=== PATIENT | male | born 1970 | race Caucasian/White ===

== ENCOUNTER 2017-12-24 09:30 | Inpatient (IN) ==
[2017-12-24] MEDS ORDERED: Ipratropium/Albuterol Neb 3 ML IH ONE (09:33)
[2017-12-24] MEDS ORDERED: methylPREDNISolone 125 MG/2 ML VIAL IVP ONE (09:36)
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
--- NOTE | 2017-12-24 09:52 | Emergency Department Note ---
Disposition Clinical Impression: HCAP (healthcare-associated pneumonia) Disposition: Admitted As Inpatient Condition: Good Referrals: NONE,PCP [Primary Care Provider] - Forms: ED Satisfaction Letter General Adult HPI - General Chief complaint: ED Shortness of Breath/Dyspnea Stated complaint: JOSE Time Seen by Provider: 12/24/17 09:32 Source: EMS Limitations: physical limitation Nursing Notes Reviewed: Yes Vital Signs Reviewed: Yes - History of Present Illness Pain Scale: 0 Past Medical History - Past Medical History Medical history: Reports: diabetes, hypertension, other Psychiatric history: Reports: no psych history - Social History Smoking Status: Current every day smoker Smokeless Tobacco Status: No Alcohol use: Reports: none Drug use: Reports: none Physical Exam - General Limitations: physical limitation General appearance: alert, in no apparent distress Course Vital Signs Temperature 99.0 F 12/24/17 09:33 Pulse Rate 96 12/24/17 09:33 Respiratory Rate 22 12/24/17 09:33 Blood Pressure 164/84 12/24/17 09:33 O2 Sat by Pulse Oximetry 93 12/24/17 09:33 Temperature 99.0 F 12/24/17 09:33 Pulse Rate 97 12/24/17 10:40 Respiratory Rate 18 12/24/17 09:42 Blood Pressure 127/83 12/24/17 10:40 O2 Sat by Pulse Oximetry 92 12/24/17 10:40 Oxygen Delivery Oxygen Delivery Nasal Cannula Medical Decision Making - MDM Narrative Medical decision making narrative: This documentation is done with the assistance of Dragon dictation. Despite efforts made to ensure accuracy, there may be inaccuracies in manga artist or spelling and typographical errors. I examined this patient and my medical decision-making was reviewed with the Resident Physician. I agree with the documented findings, disposition and treatment plan as described except to the extent set forth below. Patient was seen on arrival with EMS and Dr. Poole, I agree with her evaluation and management plan, supervised the care of the patient's stay. Patient presents today with what he thinks is increasing shortness of breath and possible pneumonia. History of COPD. Oxygen Now. Still Having Some Wheezing. No Chest Pain. He Does Have Paraplegia and Has a Zuluaga in Place. No Difficulties with That; No Fevers. I Gave Him a DuoNeb Lab Work and Recheck. He May Need Admission. He Is in Agreement with This Plan. 0940 hrs.: Patient had an EKG performed, shows a sinus rhythm does have 1 PVC, rate is 92, QRS is 116, QTC is 423, does have Q waves in inferior leads. Compared this with an EKG done in 2014 which shows no changes except for the PVC and rate. Chest X-Ray 12/24/17 09:33 IMPRESSION: 1. Cardiomegaly with pulmonary vascular congestion. 2. Consolidation noted in the left lung base which may be related to atelectasis and/or pleural effusion. Superimposed pneumonia cannot entirely be excluded. D/ / Aramis Patiño MD / Aramis Patiño MD Interpreting Provider: Aramis Patiño MD Patient's chest x-ray was not really able to be compared to his previous one. He says he was admitted here but we will seen in our records to the question is whether this is a new pneumonia or recovering. We will start him on antibiotics. Treat his acute exacerbation of COPD and then he is in agreement with this plan. We will speak with the hospitalist. - Lab Data Result diagrams: 12/24/17 10:03 12/24/17 10:03 Lab Results 12/24/17 12/24/17 12/24/17 Range/Units 10:03 10:03 10:03 WBC 8.5 (4.3-11.1) K/mcL RBC 5.82 H (4.19-5.50) M/mcL Hgb 16.1 (12.9-16.9) g/dL Hct 50.5 H (37.5-50.1) % MCV 86.8 (83.0-100.0) fL MCH 27.7 L (28.0-33.3) pg MCHC 31.9 (31.6-35.5) g/dL RDW 14.6 H (11.5-14.5) % Plt Count 175 (140-400) K/mcL MPV 10.1 (9.4-12.4) fL Immature Gran % 0.6 (0-4) % Seg Neutrophils % 66.5 % Lymphocytes % 18.0 % Monocytes % 11.8 % Eosinophils % 2.6 % Basophils % 0.5 % Neutrophils # 5.6 (1.6-8.9) K/mcL Lymphocytes # 1.5 (0.6-4.6) K/mcL Monocytes # 1.0 (0.0-1.3) K/mcL Eosinophils # 0.2 (0.0-0.6) K/mcL Basophils # 0.0 (0.0-0.2) K/mcL Sodium 133 L (136-145) mEq/L Potassium 4.2 (3.5-5.1) mEq/L Chloride 96 L (98-107) mEq/L Carbon Dioxide 29 (23-29) mEq/L BUN 12 (6-20) mg/dL Creatinine 0.56 L (0.70-1.30) mg/dL Est GFR ( Amer) > 60 (> 60) Est GFR (Non-Af Amer) > 60 (> 60) BUN/Creatinine Ratio 21 (6-26) Glucose 186 H (70-105) mg/dL Calculated Osmolality 281 (280-300) Lactic Acid 1.9 (0.5-2.2) mmol/L Calcium 9.1 (8.6-10.3) mg/dL Phosphorus (2.7-4.5) mg/dL Magnesium 1.7 (1.6-2.6) mg/dL Troponin I < 0.03 (< 0.04) ng/mL 12/24/17 Range/Units 10:03 WBC (4.3-11.1) K/mcL RBC (4.19-5.50) M/mcL Hgb (12.9-16.9) g/dL Hct (37.5-50.1) % MCV (83.0-100.0) fL MCH (28.0-33.3) pg MCHC (31.6-35.5) g/dL RDW (11.5-14.5) % Plt Count (140-400) K/mcL MPV (9.4-12.4) fL Immature Gran % (0-4) % Seg Neutrophils % % Lymphocytes % % Monocytes % % Eosinophils % % Basophils % % Neutrophils # (1.6-8.9) K/mcL Lymphocytes # (0.6-4.6) K/mcL Monocytes # (0.0-1.3) K/mcL Eosinophils # (0.0-0.6) K/mcL Basophils # (0.0-0.2) K/mcL Sodium (136-145) mEq/L Potassium (3.5-5.1) mEq/L Chloride (98-107) mEq/L Carbon Dioxide (23-29) mEq/L BUN (6-20) mg/dL Creatinine (0.70-1.30) mg/dL Est GFR ( Amer) (> 60) Est GFR (Non-Af Amer) (> 60) BUN/Creatinine Ratio (6-26) Glucose (70-105) mg/dL Calculated Osmolality (280-300) Lactic Acid (0.5-2.2) mmol/L Calcium (8.6-10.3) mg/dL Phosphorus 2.9 (2.7-4.5) mg/dL Magnesium (1.6-2.6) mg/dL Troponin I (< 0.04) ng/mL
[2017-12-24 10:30] LABS: Basophils % 0.5 %; Eosinophils # 0.2 K/mcL (0.0-0.6); Eosinophils % 2.6 %; Hematocrit 50.5 % (37.5-50.1); Hemoglobin 16.1 g/dL (12.9-16.9); Immature Granulocytes % 0.6 % (0-4); Lymphocytes # 1.5 K/mcL (0.6-4.6); Mean Corpuscular HGB Conc 31.9 g/dL (31.6-35.5); Mean Corpuscular Hemoglobin 27.7 pg (28.0-33.3); Mean Corpuscular Volume 86.8 fL (83.0-100.0); Mean Platelet Volume 10.1 fL (9.4-12.4); Monocytes % 11.8 %; Neutrophils # 5.6 K/mcL (1.6-8.9); Platelet Count 175 K/mcL (140-400); Red Blood Count 5.82 M/mcL (4.19-5.50); Red Cell Distribution Width 14.6 % (11.5-14.5); Segmented Neutrophils % 66.5 %
[2017-12-24 10:48] LABS: BUN/Creatinine Ratio 21 (6-26); Blood Urea Nitrogen 12 mg/dL (6-20); Calcium 9.1 mg/dL (8.6-10.3); Carbon Dioxide 29 mEq/L (23-29); Chloride 96 mEq/L (98-107); Glucose 186 mg/dL (70-105); Magnesium 1.7 mg/dL (1.6-2.6); Osmolality,Calculated 281 (280-300); Potassium 4.2 mEq/L (3.5-5.1); Sodium 133 mEq/L (136-145); eGFR For African Americans > 60 (> 60); eGFR For Non-African Americans > 60 (> 60)
[2017-12-24] MEDS ORDERED: Piperacillin/Tazobactam 3.375 GM in 0.9 % Sodium Chloride Mini Bag 100 ML IVPB ONE (10:49)
[2017-12-24 10:58] LABS: Troponin I < 0.03 ng/mL (< 0.04)
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
[2017-12-24] MEDS ORDERED: Naloxone 0.4 MG/ML INJ IVP PRN (14:01)
[2017-12-24] MEDS ORDERED: ZINC OXIDE TP PRN (14:10)
[2017-12-24] MEDS ORDERED: MENTHOL TP PRN (14:10)
--- NOTE | 2017-12-24 14:50 | Electrocardiograph Report ---
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
[2017-12-24] MEDS: Ipratropium/Albuterol Neb 3 ML IH SCH ×3 (16:11→23:59)
[2017-12-24] MEDS: Baclofen 10 MG TABLET PO SCH ×2 (16:18→21:27)
[2017-12-24] MEDS: methylPREDNISolone 125 MG/2 ML VIAL IVP SCH (16:18)
[2017-12-24] MEDS: Pregabalin 50 MG CAPSULE PO SCH ×2 (16:18→21:27)
[2017-12-24] MEDS: Insulin Regular, Human 100 UNIT/ML SQ SCH ×2 (16:19→21:28)
[2017-12-24] MEDS: Metoprolol 100 MG TABLET PO SCH (19:40)
[2017-12-24] MEDS: *HR* Heparin 5,000 UNIT/ML VIAL SQ SCH (21:28)
[2017-12-25] MEDS: methylPREDNISolone 125 MG/2 ML VIAL IVP SCH ×3 (00:10→15:12)
[2017-12-25] MEDS: Ipratropium/Albuterol Neb 3 ML IH SCH ×6 (03:59→23:54)
[2017-12-25] MEDS: *HR* Heparin 5,000 UNIT/ML VIAL SQ SCH ×3 (05:49→21:16)
[2017-12-25 07:55] LABS: Basophils % 0.3 %; Hemoglobin 16.2 g/dL (12.9-16.9); Immature Granulocytes % 0.8 % (0-4); Lymphocytes # 1.1 K/mcL (0.6-4.6); Mean Corpuscular HGB Conc 32.4 g/dL (31.6-35.5); Mean Corpuscular Hemoglobin 27.5 pg (28.0-33.3); Mean Corpuscular Volume 84.7 fL (83.0-100.0); Mean Platelet Volume 10.6 fL (9.4-12.4); Monocytes # 0.5 K/mcL (0.0-1.3); Monocytes % 6.5 %; Neutrophils # 5.6 K/mcL (1.6-8.9); Platelet Count 208 K/mcL (140-400); Red Cell Distribution Width 14.7 % (11.5-14.5); Segmented Neutrophils % 77.4 %
[2017-12-25] MEDS: Lisinopril 20 MG TABLET PO SCH (08:05)
[2017-12-25] MEDS: Metoprolol 100 MG TABLET PO SCH ×2 (08:05→21:15)
[2017-12-25] MEDS: Aspirin Enteric Coated 81 MG Tablet PO SCH (08:06)
[2017-12-25] MEDS: Baclofen 10 MG TABLET PO SCH ×3 (08:06→21:15)
[2017-12-25] MEDS: Pregabalin 50 MG CAPSULE PO SCH ×3 (08:06→21:16)
[2017-12-25 08:30] LABS: BUN/Creatinine Ratio 30 (6-26); Blood Urea Nitrogen 16 mg/dL (6-20); Calcium 9.5 mg/dL (8.6-10.3); Carbon Dioxide 24 mEq/L (23-29); Chloride 103 mEq/L (98-107); Glucose 306 mg/dL (70-105); Osmolality,Calculated 297 (280-300); Potassium 5.1 mEq/L (3.5-5.1); Sodium 137 mEq/L (136-145); eGFR For African Americans > 60 (> 60); eGFR For Non-African Americans > 60 (> 60)
[2017-12-25] MEDS ORDERED: (Liraglutide [Victoza 2-Pak] 0.6 MG) SQ SCH (09:00)
[2017-12-25] MEDS ORDERED: Insulin Regular, Human 100 UNIT/ML SQ SCH ×3 (10:00→15:00)
[2017-12-25] MEDS: Insulin Regular, Human 100 UNIT/ML SQ SCH ×6 (12:21→22:14)
--- NOTE | 2017-12-25 12:30 | Internal Med Progress Note ---
Date of Encounter: 12/25/17 Time of Encounter: 12:28 - Assessment and plan (1) HCAP (healthcare-associated pneumonia) Current Visit: Yes Status: Acute Assessment and plan: Patient was found to be hypoxic in the emergency room with a productive cough and positive for shortness of breath. Continue vancomycin and Zosyn for healthcare associated pneumonia. Continue duo nebs and Solu-Medrol CXR report Cardiomegaly with pulmonary vascular congestion. and consolidation noted in the left lung base which may be related to atelectasis and/or pleural effusion. Superimposed pneumonia cannot entirely be excluded. (2) Diabetes Current Visit: Yes Status: Chronic Assessment and plan: Hold oral glycemic medications and continue home insulin as well as sliding scale insulin coverage Qualifiers: Diabetes mellitus type: type 2 Qualified Code(s): E11.9 - Type 2 diabetes mellitus without complications; Z79.4 - halfway (current) use of insulin; Z79.4 - halfway (current) use of insulin; Z79.4 - halfway (current) use of insulin; Z79.4 - termite treater helper (current) use of insulin (3) HTN (hypertension) Current Visit: Yes Status: Chronic Assessment and plan: Blood pressure is borderline, continue home medications Add hydralazine for when necessary blood pressure control Qualifiers: Hypertension type: essential hypertension Qualified Code(s): I10 - Essential (primary) hypertension (4) Obesity Current Visit: Yes Status: Chronic Assessment and plan: Would benefit from dietary changes but not receptive as he states he has few pleasures in life Qualifiers: Obesity classification: adult class 3 (BMI >= 40) Body mass index: BMI 50.0 -59.9 Qualified Code(s): E66.9 - Obesity, unspecified; Z68.43 - Body mass index (BMI) 50-59.9 , adult; Z68.43 - Body mass index (BMI) 50-59.9 , adult; Z68.43 - Body mass index (BMI) 50-59.9 , adult; Z68.43 - Body mass index (BMI) 50-59.9 , adult (5) Smoker Current Visit: Yes Status: Chronic Assessment and plan: Patient not interested in cessation, he states it is one of the few pleasures he has left. (6) Acute respiratory failure with hypoxia Current Visit: Yes Status: Acute Assessment and plan: Chest x-ray report revealed enlarged cardiac silhouette, pulmonary vascular congestion. And area of consolidation in the left lung base that could be related to atelectasis and/or pleural effusion although superimposed pneumonia cannot be excluded. Administer 1 dose of 40 mg IV Lasix Check a BNP O2 to maintain sats greater than 90% (7) HLD (hyperlipidemia) Current Visit: Yes Status: Chronic Assessment and plan: Continue Zocor Qualifiers: Hyperlipidemia type: unspecified Qualified Code(s): E78.5 - Hyperlipidemia , unspecified (8) DVT prophylaxis Current Visit: Yes Status: Acute Assessment and plan: Continue subcutaneous heparin - Time Spent With Patient Total time spent is greater than 50% in coordination of care (as documented) at patient's floor/unit and/or counseling patient: - Subjective Interval history: Patient is sitting up in bed in no acute distress on 3 L nasal cannula. He does not have home oxygen. He states he smokes one pack of cigarettes per day and is not interesting in cessation. He also states that he is a paraplegic and his feet are always cold. He also states that transportation to and from is a problem wish to start working on it early. He denies any fever, chills, chest pain. He does report some increased yellow sputum. He is tolerating a diet. - Constitutional Vitals: Temp Pulse Resp BP Pulse Ox 98.8 F 92 17 154/92 91 12/25/17 11:15 12/25/17 11:15 12/25/17 11:41 12/25/17 11:15 12/25/17 11:41 General appearance: Present: cooperative, A&O X 3, morbidly obese, answers questions appropriately - Head Head exam: Present: atraumatic, normocephalic - Eye Eye exam: Present: PERRL, conjuntiva pink, sclera anicteric Pupils: Present: PERRL - Neck Neck exam general surgery: Present: supple, trachea midline. Absent: lymphadenopathy - Respiratory Respiratory exam: Present: decreased breath sounds. Absent: accessory muscle use, rales, respiratory distress, rhonchi, wheezes - Cardiovascular Cardiovascular exam: Present: RRR, +S1, +S2. Absent: diastolic murmur, gallop, rubs, systolic murmur - GI/Abdominal GI/Abdominal exam: Present: firm, normal bowel sounds, no peritoneal signs. Absent: distended, tenderness - Extremities Exam Extremities exam: Present: pedal edema, radial pulses palpable and symmetrical. Absent: calf tenderness, cyanotic, mottling Additional comments: Lower extremities are cool but patient states that is a normal finding for him - Neurological Exam Neurological exam: Present: CN II-XII intact, oriented X3, no focal deficits. Absent: pronater drift, facial droop, speech deficit - Skin Skin exam: Present: dry, intact, normal color, warm Internal Medicine: Result - Labs CBC & Chem 7: 12/25/17 06:59 12/25/17 06:59 Labs: Short CBC 12/25/17 Range/Units 06:59 WBC 7.2 (4.3-11.1) K/mcL Hgb 16.2 (12.9-16.9) g/dL Hct 50.0 (37.5-50.1) % Plt Count 208 (140-400) K/mcL Neutrophils # 5.6 (1.6-8.9) K/mcL BMP 12/25/17 06:59 Sodium 137 Potassium 5.1 Chloride 103 Carbon Dioxide 24 BUN 16 Creatinine 0.53 L Glucose 306 H Calcium 9.5 Consult Discharge Plan - Plan Referrals: NONE,PCP [Primary Care Provider] -
[2017-12-25] MEDS ORDERED: Furosemide 40 MG/4 ML VIAL IVP ONE (12:48)
[2017-12-25] MEDS ORDERED: hydrALAZINE 10 MG TABLET PO PRN (12:49)
[2017-12-25] MEDS: Piperacillin/Tazobactam 3.375 GM in 0.9 % Sodium Chloride Mini Bag 100 ML IVPB SCH (15:14)
[2017-12-25] MEDS ORDERED: Dextrose Gel 15 GM/37.5 ML TUBE PO PRN ×2 (17:01)
[2017-12-25] MEDS ORDERED: *HR* Dextrose 50 % in Water (Syg) 50 ML SYRINGE IVP PRN (17:01)
[2017-12-25] MEDS ORDERED: D5% in Water 1,000 ML IVC PRN (17:01)
[2017-12-25] MEDS: Insulin LISPRO 300 UNITS/3 ML VIAL SQ SCH (17:52)
[2017-12-25] MEDS ORDERED: Insulin LISPRO 300 UNITS/3 ML VIAL SQ SCH (21:00)
[2017-12-26] MEDS: methylPREDNISolone 125 MG/2 ML VIAL IVP SCH ×2 (00:54→08:59)
[2017-12-26] MEDS: Piperacillin/Tazobactam 3.375 GM in 0.9 % Sodium Chloride Mini Bag 100 ML IVPB SCH ×2 (00:54→08:59)
[2017-12-26] MEDS: Ipratropium/Albuterol Neb 3 ML IH SCH ×3 (03:54→11:33)
[2017-12-26] MEDS: *HR* Heparin 5,000 UNIT/ML VIAL SQ SCH ×2 (06:01→15:19)
[2017-12-26 08:07] LABS: BUN/Creatinine Ratio 35 (6-26); Blood Urea Nitrogen 22 mg/dL (6-20); Calcium 9.1 mg/dL (8.6-10.3); Carbon Dioxide 31 mEq/L (23-29); Chloride 99 mEq/L (98-107); Glucose 356 mg/dL (70-105); Osmolality,Calculated 300 (280-300); Potassium 4.3 mEq/L (3.5-5.1); Sodium 136 mEq/L (136-145); eGFR For African Americans > 60 (> 60); eGFR For Non-African Americans > 60 (> 60)
[2017-12-26 08:20] LABS: Hematocrit 48.1 % (37.5-50.1); Hemoglobin 15.4 g/dL (12.9-16.9); Mean Corpuscular Hemoglobin 27.6 pg (28.0-33.3); Mean Corpuscular Volume 86.4 fL (83.0-100.0); Mean Platelet Volume 10.2 fL (9.4-12.4); Platelet Count 243 K/mcL (140-400); Red Blood Count 5.57 M/mcL (4.19-5.50); Red Cell Distribution Width 14.3 % (11.5-14.5)
[2017-12-26] MEDS: Aspirin Enteric Coated 81 MG Tablet PO SCH (08:57)
[2017-12-26] MEDS: Lisinopril 20 MG TABLET PO SCH (08:57)
[2017-12-26] MEDS: Pregabalin 50 MG CAPSULE PO SCH ×2 (08:58→15:19)
[2017-12-26] MEDS: Baclofen 10 MG TABLET PO SCH ×2 (08:58→15:19)
[2017-12-26] MEDS: Metoprolol 100 MG TABLET PO SCH (08:58)
[2017-12-26] MEDS: Insulin LISPRO 300 UNITS/3 ML VIAL SQ SCH ×2 (09:00→11:56)
[2017-12-26] MEDS ORDERED: Furosemide 40 MG/4 ML VIAL IVP ONE (10:54)
[2017-12-26] MEDS: Insulin Regular, Human 100 UNIT/ML SQ SCH ×4 (10:57→15:19)
[2017-12-26 11:36] VITALS: BP 131/62
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
--- NOTE | 2017-12-26 13:39 | Physician Discharge Referral ---
Home Health/Hosp Referral Info Transfer to: Home Health Attending Provider: yudy pat - Diagnosis (1) HCAP (healthcare-associated pneumonia) Priority: Primary Status: Acute (2) Diabetes Priority: Primary Status: Chronic (3) HTN (hypertension) Priority: Primary Status: Chronic (4) Obesity Priority: Primary Status: Chronic (5) Smoker Priority: Primary Status: Chronic (6) Acute respiratory failure with hypoxia Priority: Primary Status: Acute (7) HLD (hyperlipidemia) Priority: Primary Status: Chronic (8) Cardiomegaly Priority: Primary Status: Chronic (9) Pulmonary vascular congestion Priority: Primary Status: Acute (10) Sleep apnea, unspecified Priority: Primary Status: Chronic (11) Zuluaga catheter in place on admission Priority: Primary Status: Chronic - Respiratory Orders Oxygen / L per min (3 liters cont) Smoking Cessation: Smoking cessation has been advised. For more information, call the [employer] Tobacco Quit Line at 1-816-PMEO-NOW. - Diet/Nutrition Diet/Nutrition Orders: Cardiac, No Concentrated Sweets - Activity Activity Orders: Chair (activity as pre hospitial) - Services Needed Following services are medically necessary services: Nursing, Home Health Aide - Transfer Medications Prescriptions: Ipratropium/Albuterol Neb [Duoneb] 3 ml IH Q6HR 30 Days #120 inhsol Furosemide [Lasix] 20 mg PO DAILY #30 tablet Levofloxacin [Levaquin] 500 mg PO DAILY #5 tablet Potassium Chloride 10 meq PO DAILY #30 tab.er.prt predniSONE [Prednisone] 10 mg PO DAILY #30 tab.ds.pk Home Medications: Albuterol Sulfate [Albuterol Inhaler] 0 puff IH Q6HR 12/24/17 [History] Aspirin [Adult Aspirin Regimen] 81 mg PO DAILY 12/24/17 [History] Baclofen [Lioresal] 10 mg PO TID 12/24/17 [History] DULoxetine [Cymbalta] 30 mg PO DAILY 12/24/17 [History] GuaiFENesin/Dextromethorphan [Robitussin/Dm] 5 ml PO Q4H PRN 12/24/17 [History] Insulin Regular Human [Humulin R] 170 unit SQ TID 12/24/17 [History] Liraglutide [Victoza 2-Joshua] 0.6 mg SQ DAILY 04/02/18 [History] Lisinopril [Zestril] 40 mg PO DAILY 12/24/17 [History] Menthol/Zinc Oxide [Moisture Barrier Ointment] 113 gm TP PRN PRN 12/24/17 [ History] Metoprolol [Lopressor] 100 mg PO BID 12/24/17 [History] Pregabalin [Lyrica] 200 mg PO TID 12/24/17 [History] Simvastatin [Zocor] 20 mg PO HS 12/24/17 [History] metFORMIN [Glucophage] 1,000 mg PO BIDWM 12/24/17 [History] Furosemide [Lasix] 20 mg PO DAILY #30 tablet 12/26/17 [Rx] Ipratropium/Albuterol Neb [Duoneb] 3 ml IH Q6HR 30 Days #120 inhsol 12/26/17 [Rx ] Levofloxacin [Levaquin] 500 mg PO DAILY #5 tablet 12/26/17 [Rx] Potassium Chloride 10 meq PO DAILY #30 tab.er.prt 12/26/17 [Rx] predniSONE [Prednisone] 10 mg PO DAILY #30 tab.ds.pk 12/26/17 [Rx] Allergies/Adverse Reactions: 3 Allergy/AdvReac Type Severity Reaction Status Date / Time Penicillins Allergy See Verified 12/24/17 11:04 Comments Certification: Further, I certify that my clinical findings support that this patient is homebound (i.e. absences from home require considerable and taxing effort and are for medical reasons or evangelical services or infrequently or short duration when for other reasons) because: Homebound Reason: Patient requires assistance of a person or device to safely leave home, Leaving home requires considerable and taxing effort due to condition, Severity of cardiac or pulmonary status limits activity tolerance Attestation: My signature below is to certify that this patient is under my care and that I, or nurse practitioner, or a physician's environmental assistant working with me, has a face-to -face encounter with this patient.
[2017-12-26] MEDS ORDERED: Aminoglycoside Consult 1 EACH MC ONE (16:24)
== END 2017-12-26 16:25 | disposition home health service (06) | DRG 193 ==
LOC: EMEROO 09:30 → 3BNU 09:30
PROVIDERS: ADMIT Hospitalist; ATTEND Registered Nurse

== ENCOUNTER 2021-02-14 11:43 | Inpatient (IN) ==
[2021-02-14] MEDS ORDERED: Isovue-370 500 ML BOTTLE IVP ONE (12:18)
[2021-02-14] MEDS ORDERED: 0.9 % Sodium Chloride 1,000 ML IV ONE ×2 (12:20→15:15)
[2021-02-14 12:53] LABS: Hematocrit 38.3 % (37.5-50.1); Hemoglobin 12.1 g/dL (12.9-16.9); Mean Corpuscular HGB Conc 31.6 g/dL (31.6-35.5); Mean Corpuscular Hemoglobin 24.9 pg (28.0-33.3); Mean Platelet Volume 11.1 fL (9.4-12.4); Monocytes # 1.2 K/mcL (0.0-1.3); Platelet Count 206 K/mcL (140-400); Red Blood Count 4.85 M/mcL (4.19-5.50); Red Cell Distribution Width 16.1 % (11.5-14.5); White Blood Count 15.1 K/mcL (4.3-11.1)
[2021-02-14 13:01] LABS: INR 1.2; Prothrombin Time 13.3 Seconds (9.4-12.1)
[2021-02-14 13:04] LABS: Activated Partial Thrombo Time 33.1 Seconds (26.0-36.0)
[2021-02-14 13:27] LABS: Lymphocytes # 1.7 K/mcL (0.6-4.6); Neutrophils # 12.2 K/mcL (1.6-8.9); Toxic Granulation Present (Not Present)
[2021-02-14 13:28] LABS: Platelet Estimate Normal (Normal)
[2021-02-14 13:33] LABS: Alanine Aminotransferase 41 Units/L (7-52); Albumin/Globulin Ratio 0.9 (1.1-2.2); Alkaline Phosphatase 101 Units/L (34-104); Aspartate Amino Transferase 65 Units/L (13-39); BUN/Creatinine Ratio 19 (6-26); Bilirubin,Direct 0.1 mg/dL (0.0-0.2); Bilirubin,Indirect 0.2 mg/dL (0.0-1.0); Bilirubin,Total 0.3 mg/dL (0.3-1.0); Blood Urea Nitrogen 44 mg/dL (6-20); Calcium 8.3 mg/dL (8.6-10.3); Carbon Dioxide 20 mEq/L (23-29); Chloride 92 mEq/L (98-107); Globulin 3.2 g/dL (2.4-3.5); Glucose 163 mg/dL (70-105); Osmolality,Calculated 283 (280-300); Potassium 3.5 mEq/L (3.5-5.1); Sodium 129 mEq/L (136-145); Total Protein 6.2 g/dL (6.4-8.9); Troponin I < 0.03 ng/mL (< 0.04); eGFR For African Americans 36 (> 60); eGFR For Non-African Americans 30 (> 60)
[2021-02-14 14:40] LABS: Bacteria,Urine Few per hpf (None-Few); Bilirubin,Urine Negative (Negative); Blood,Urine Moderate (Negative); Clarity,Urine Ex.Turbid (Clear); Color,Urine Dark-Yellow (Yellow); Glucose,Urine (UA) 30 mg/dL (Normal); Granular Casts,Urine Many per lpf (None Seen); Hyaline Casts,Urine Moderate per lpf (None Seen); Ketones,Urine Negative (Negative); Leukocyte Esterase,Urine Large (Negative); Mucus,Urine Few per lpf (None-Few); Nitrite,Urine Negative (Negative); PH,Urine 5.5 pH Units (5.0-8.0); Protein,Urine 200 mg/dL (Neg-Trace); RBC,Urine 50-100 per hpf (0-3); Renal Epithelial Cells,Urine Few per hpf (None-Few); Specific Gravity,Urine 1.026 (1.010-1.025); Squamous Epithelial Cell,Urine Few per hpf (None-Few); WBC,Urine TNTC per hpf (0-3)
[2021-02-14] MEDS ORDERED: levoFLOXacin 750 MG/150 ML 750 MG/150 ML BAG IVPB ONE (15:16)
[2021-02-14] MEDS ORDERED: Ondansetron 4 MG/2 ML VIAL IVP ONE (15:53)
[2021-02-14] MEDS ORDERED: Metoclopramide 10 MG/2 ML VIAL IVP ONE (18:18)
[2021-02-14] MEDS ORDERED: Ondansetron 4 MG/2 ML VIAL IVP PRN (20:14)
[2021-02-14] MEDS ORDERED: Naloxone 0.4 MG/ML INJ IVP PRN (20:14)
[2021-02-14] MEDS ORDERED: *HR* OxyCODONE Immed Rel 5 MG TABLET PO PRN (20:14)
[2021-02-14] MEDS ORDERED: Acetaminophen 325 MG TABLET PO PRN (20:14)
[2021-02-14] MEDS ORDERED: *HR* HYDROcodone/Acet 5/325 mg TABLET PO PRN (20:14)
[2021-02-14 22:35] LABS: Calcium 7.9 mg/dL (8.6-10.3); Potassium 3.6 mEq/L (3.5-5.1)
[2021-02-14] MEDS: 0.9 % Sodium Chloride 1,000 ML IVC SCH (23:02)
[2021-02-14] MEDS ORDERED: Insulin LISPRO 300 UNITS/3 ML VIAL SUBQ SCH (23:45)
[2021-02-14] MEDS ORDERED: Dextrose Gel 15 GM/37.5 ML TUBE PO PRN ×2 (23:46)
[2021-02-14] MEDS ORDERED: *HR* Dextrose 50 % in Water (Vial) 50 ML VIAL IVP PRN (23:46)
[2021-02-14] MEDS ORDERED: D5% in Water 1,000 ML IVC PRN (23:46)
[2021-02-15] MEDS: Pregabalin 50 MG CAPSULE PO SCH ×3 (00:20→20:07)
[2021-02-15] MEDS: Baclofen 10 MG TABLET PO SCH ×4 (00:20→20:07)
[2021-02-15] MEDS ORDERED: Nicotine 21 MG PATCH.TD24 TD SCH (01:00)
[2021-02-15 04:20] LABS: Hematocrit 33.3 % (37.5-50.1); Hemoglobin 10.7 g/dL (12.9-16.9); Mean Corpuscular HGB Conc 32.1 g/dL (31.6-35.5); Mean Corpuscular Volume 77.8 fL (83.0-100.0); Mean Platelet Volume 11.1 fL (9.4-12.4); Platelet Count 206 K/mcL (140-400); Red Blood Count 4.28 M/mcL (4.19-5.50); Red Cell Distribution Width 16.4 % (11.5-14.5); White Blood Count 15.9 K/mcL (4.3-11.1)
[2021-02-15 04:39] LABS: Albumin 2.7 g/dL (3.5-5.7); Albumin/Globulin Ratio 0.9 (1.1-2.2); Bilirubin,Total 0.3 mg/dL (0.3-1.0); Calcium 7.7 mg/dL (8.6-10.3); Magnesium 1.5 mg/dL (1.6-2.6); Phosphorous 1.4 mg/dL (2.7-4.5); Potassium 3.7 mEq/L (3.5-5.1); Total Protein 5.7 g/dL (6.4-8.9)
[2021-02-15 05:01] LABS: Lymphocytes # 2.2 K/mcL (0.6-4.6); Monocytes # 0.6 K/mcL (0.0-1.3); Platelet Estimate Normal (Normal); Toxic Granulation Present (Not Present)
[2021-02-15] MEDS ORDERED: *HR* Heparin 5,000 UNIT/ML VIAL SQ SCH (06:00)
[2021-02-15] MEDS ORDERED: 0.9 % Sodium Chloride 500 ML IVC ONE (06:21)
[2021-02-15] MEDS: 0.9 % Sodium Chloride 1,000 ML IVC SCH ×3 (06:43→20:10)
[2021-02-15] MEDS ORDERED: Insulin LISPRO 300 UNITS/3 ML VIAL SUBQ SCH ×2 (07:30→12:00)
[2021-02-15] MEDS ORDERED: cefTRIAXone 1,000 MG in 0.9 % Sodium Chloride Mini Bag 100 ML IVPB SCH (09:00)
[2021-02-15] MEDS ORDERED: Norepinephrine 4 MG/254 ML IV.SOLN IVC SCH (09:30)
[2021-02-15] MEDS ORDERED: Insulin DETEMIR 100 UNIT/ML X5UNITS SUBQ SCH ×2 (09:45→21:00)
[2021-02-15] MEDS ORDERED: Vancomycin 2,000 MG/520 ML IV.SOLN IVPB SCH (11:00)
[2021-02-15] MEDS ORDERED: Ondansetron 4 MG/2 ML VIAL IVP PRN (11:01)
[2021-02-15] MEDS ORDERED: Acetaminophen 325 MG TABLET PO PRN (11:01)
[2021-02-15] MEDS ORDERED: Isovue-370 500 ML BOTTLE IVP ONE (11:01)
[2021-02-15] MEDS ORDERED: Naloxone 0.4 MG/ML INJ IVP PRN (11:01)
[2021-02-15] MEDS ORDERED: *HR* HYDROcodone/Acet 5/325 mg TABLET PO PRN (11:01)
[2021-02-15] MEDS ORDERED: *HR* OxyCODONE Immed Rel 5 MG TABLET PO PRN (11:01)
[2021-02-15] MEDS ORDERED: Dextrose Gel 15 GM/37.5 ML TUBE PO PRN ×2 (11:01)
[2021-02-15] MEDS ORDERED: *HR* Dextrose 50 % in Water (Vial) 50 ML VIAL IVP PRN (11:01)
[2021-02-15] MEDS ORDERED: D5% in Water 1,000 ML IVC PRN (11:01)
[2021-02-15] MEDS: Albumin Human 5% 12.5 GM/250 ML IV.SOLN IVC SCH ×2 (12:28→14:57)
[2021-02-15] MEDS: Vancomycin 1,250 MG/262.5 ML IV.SOLN IVPB SCH (12:31)
[2021-02-15] MEDS: Insulin LISPRO 300 UNITS/3 ML VIAL SUBQ SCH (12:40)
[2021-02-15] MEDS: *HR* Heparin 5,000 UNIT/ML VIAL SQ SCH ×2 (13:38→21:42)
[2021-02-15 14:16] LABS: VBG Ionized Calcium 1.04 mmol/L (1.15-1.35)
[2021-02-15] MEDS: Norepinephrine 4 MG/254 ML IV.SOLN IVC SCH (14:22)
[2021-02-15 14:37] LABS: Albumin 2.7 g/dL (3.5-5.7); Albumin/Globulin Ratio 0.9 (1.1-2.2); Bilirubin,Total 0.3 mg/dL (0.3-1.0); Calcium 7.7 mg/dL (8.6-10.3); Globulin 2.9 g/dL (2.4-3.5); Magnesium 1.8 mg/dL (1.6-2.6); Phosphorous 1.8 mg/dL (2.7-4.5); Potassium 3.4 mEq/L (3.5-5.1); Total Protein 5.6 g/dL (6.4-8.9)
[2021-02-15 15:02] LABS: Uric Acid 8.1 mg/dL (2.3-7.6)
[2021-02-15 16:08] LABS: Bilirubin,Urine Negative (Negative); Blood,Urine Small (Negative); Clarity,Urine Ex.Turbid (Clear); Color,Urine Yellow (Yellow); Glucose,Urine (UA) Normal (Normal); Ketones,Urine Negative (Negative); Leukocyte Esterase,Urine Large (Negative); Nitrite,Urine Negative (Negative); Protein,Urine 200 mg/dL (Neg-Trace); Specific Gravity,Urine 1.008 (1.010-1.025); Urobilinogen,Urine Normal (Normal)
[2021-02-15 16:28] LABS: Bacteria,Urine Present per hpf (None-Few); Granular Casts,Urine Few per lpf (None Seen); RBC,Urine Present per hpf (0-3); Squamous Epithelial Cell,Urine Present per hpf (None-Few); WBC,Urine TNTC per hpf (0-3)
[2021-02-15 16:29] LABS: Amorphous Sediment,Urine Present per hpf (None-Few); Transitional Epi Cells,Urine Present per hpf (None-Few)
[2021-02-15] MEDS: *HR* Insulin Regular U-500 500 UNIT/ML SUBQ SCH (16:57)
[2021-02-15] MEDS ORDERED: Calcium Gluconate 1gm/50mL 1 GM/50 ML BAG IVPB PRN (18:40)
[2021-02-15 20:02] LABS: Hematocrit 34.7 % (37.5-50.1); Hemoglobin 11.2 g/dL (12.9-16.9); Mean Corpuscular HGB Conc 32.3 g/dL (31.6-35.5); Mean Corpuscular Hemoglobin 25.2 pg (28.0-33.3); Mean Corpuscular Volume 78.2 fL (83.0-100.0); Mean Platelet Volume 10.8 fL (9.4-12.4); Platelet Count 229 K/mcL (140-400); Red Blood Count 4.44 M/mcL (4.19-5.50); Red Cell Distribution Width 16.5 % (11.5-14.5); White Blood Count 14.2 K/mcL (4.3-11.1)
[2021-02-15] MEDS ORDERED: 0.9 % Sodium Chloride 1,000 ML ONE (20:06)
[2021-02-15 20:21] LABS: Potassium 3.6 mEq/L (3.5-5.1)
[2021-02-15 20:29] LABS: Lymphocytes # 2.6 K/mcL (0.6-4.6); Monocytes # 0.3 K/mcL (0.0-1.3); Neutrophils # 11.4 K/mcL (1.6-8.9); Toxic Granulation Present (Not Present)
[2021-02-15 20:30] LABS: Reactive Lymphocytes Present (Not Present)
[2021-02-15] MEDS ORDERED: Pregabalin 50 MG CAPSULE PO SCH (21:00)
[2021-02-16] MEDS ORDERED: Nicotine 21 MG PATCH.TD24 TD SCH (01:00)
[2021-02-16 03:53] LABS: Basophils % 0.3 %; Eosinophils # 0.4 K/mcL (0.0-0.6); Eosinophils % 3.4 %; Hematocrit 31.7 % (37.5-50.1); Immature Granulocytes % 2.3 % (0-4); Lymphocytes # 1.6 K/mcL (0.6-4.6); Lymphocytes % 12.7 %; Mean Corpuscular HGB Conc 31.5 g/dL (31.6-35.5); Mean Corpuscular Hemoglobin 24.8 pg (28.0-33.3); Mean Corpuscular Volume 78.7 fL (83.0-100.0); Mean Platelet Volume 10.4 fL (9.4-12.4); Monocytes # 1.1 K/mcL (0.0-1.3); Monocytes % 8.7 %; Platelet Count 203 K/mcL (140-400); Red Blood Count 4.03 M/mcL (4.19-5.50); Red Cell Distribution Width 16.6 % (11.5-14.5); Segmented Neutrophils % 72.6 %; White Blood Count 12.4 K/mcL (4.3-11.1)
[2021-02-16 04:14] LABS: Calcium 7.9 mg/dL (8.6-10.3); Magnesium 1.9 mg/dL (1.6-2.6); Potassium 3.7 mEq/L (3.5-5.1)
[2021-02-16 04:15] LABS: Complement C3 155 mg/dL (87-200)
[2021-02-16] MEDS: *HR* Heparin 5,000 UNIT/ML VIAL SQ SCH ×3 (05:24→21:28)
[2021-02-16] MEDS: Insulin LISPRO 300 UNITS/3 ML VIAL SUBQ SCH (07:24)
[2021-02-16] MEDS: Baclofen 10 MG TABLET PO SCH ×3 (08:39→20:06)
[2021-02-16] MEDS: Pregabalin 50 MG CAPSULE PO SCH ×3 (08:39→20:06)
[2021-02-16] MEDS ORDERED: cefTRIAXone 1,000 MG in 0.9 % Sodium Chloride Mini Bag 100 ML IVPB SCH (09:00)
[2021-02-16] MEDS: *HR* Insulin Regular U-500 500 UNIT/ML SUBQ SCH ×3 (09:22→16:55)
[2021-02-16] MEDS ORDERED: *HR* LORazepam 0.5 MG TABLET PO ONE (09:27)
[2021-02-16] MEDS ORDERED: Vancomycin 2,000 MG/520 ML IV.SOLN IVPB SCH (11:00)
[2021-02-16] MEDS: Norepinephrine 4 MG/254 ML IV.SOLN IVC SCH (11:19)
[2021-02-16] MEDS: Vancomycin 1,250 MG/262.5 ML IV.SOLN IVPB SCH (13:06)
[2021-02-16] MEDS: Albumin Human 5% 12.5 GM/250 ML IV.SOLN IVC SCH ×2 (13:06→16:51)
[2021-02-16] MEDS ORDERED: Acetaminophen 325 MG TABLET PO PRN (18:11)
[2021-02-16] MEDS ORDERED: *HR* HYDROcodone/Acet 5/325 mg TABLET PO PRN (18:11)
[2021-02-16] MEDS ORDERED: Ondansetron 4 MG/2 ML VIAL IVP PRN (18:11)
[2021-02-16] MEDS ORDERED: *HR* Dextrose 50 % in Water (Vial) 50 ML VIAL IVP PRN (18:11)
[2021-02-16] MEDS ORDERED: Albumin Human 5% 12.5 GM/250 ML IV.SOLN IVC SCH (18:11)
[2021-02-16] MEDS ORDERED: Dextrose Gel 15 GM/37.5 ML TUBE PO PRN ×2 (18:11)
[2021-02-16] MEDS ORDERED: D5% in Water 1,000 ML IVC PRN (18:11)
[2021-02-16] MEDS ORDERED: Naloxone 0.4 MG/ML INJ IVP PRN (18:11)
[2021-02-16] MEDS ORDERED: *HR* OxyCODONE Immed Rel 5 MG TABLET PO PRN (18:11)
[2021-02-16 18:47] LABS: Calcium 8.1 mg/dL (8.6-10.3); Potassium 3.6 mEq/L (3.5-5.1)
[2021-02-17] MEDS: Nicotine 21 MG PATCH.TD24 TD SCH (03:33)
[2021-02-17 04:00] LABS: VBG Ionized Calcium 1.13 mmol/L (1.15-1.35)
[2021-02-17 04:00] LABS: Eosinophils # 0.4 K/mcL (0.0-0.6); Hematocrit 31.3 % (37.5-50.1); Hemoglobin 10.2 g/dL (12.9-16.9); Mean Corpuscular HGB Conc 32.6 g/dL (31.6-35.5); Mean Corpuscular Hemoglobin 25.4 pg (28.0-33.3); Mean Corpuscular Volume 78.1 fL (83.0-100.0); Mean Platelet Volume 10.5 fL (9.4-12.4); Platelet Count 230 K/mcL (140-400); Red Blood Count 4.01 M/mcL (4.19-5.50); Red Cell Distribution Width 16.6 % (11.5-14.5); White Blood Count 8.8 K/mcL (4.3-11.1)
[2021-02-17 04:16] LABS: Calcium 8.2 mg/dL (8.6-10.3)
[2021-02-17 04:17] LABS: Magnesium 2.1 mg/dL (1.6-2.6); Phosphorous 3.1 mg/dL (2.7-4.5)
[2021-02-17 04:55] LABS: Lymphocytes # 1.9 K/mcL (0.6-4.6); Monocytes # 0.7 K/mcL (0.0-1.3); Neutrophils # 5.8 K/mcL (1.6-8.9); Toxic Granulation Present (Not Present)
[2021-02-17 04:56] LABS: Anisocytosis 1+ (Not Present); Platelet Estimate Normal (Normal)
[2021-02-17] MEDS: *HR* Heparin 5,000 UNIT/ML VIAL SQ SCH ×3 (05:59→20:32)
[2021-02-17] MEDS ORDERED: *HR* Insulin Regular U-500 500 UNIT/ML SUBQ SCH (08:00)
[2021-02-17] MEDS: Baclofen 10 MG TABLET PO SCH ×3 (08:38→20:32)
[2021-02-17] MEDS: Pregabalin 50 MG CAPSULE PO SCH ×3 (08:38→20:32)
[2021-02-17] MEDS: *HR* Insulin Regular U-500 500 UNIT/ML SUBQ SCH ×3 (08:45→18:03)
[2021-02-17] MEDS ORDERED: cefTRIAXone 1,000 MG in 0.9 % Sodium Chloride Mini Bag 100 ML IVPB SCH (09:00)
[2021-02-18] MEDS: Nicotine 21 MG PATCH.TD24 TD SCH (00:56)
[2021-02-18 05:52] LABS: Basophils # 0.1 K/mcL (0.0-0.2); Basophils % 0.9 %; Eosinophils # 0.3 K/mcL (0.0-0.6); Hematocrit 34.4 % (37.5-50.1); Hemoglobin 10.5 g/dL (12.9-16.9); Immature Granulocytes % 4.4 % (0-4); Lymphocytes # 1.5 K/mcL (0.6-4.6); Lymphocytes % 17.9 %; Mean Corpuscular HGB Conc 30.5 g/dL (31.6-35.5); Mean Corpuscular Hemoglobin 24.3 pg (28.0-33.3); Mean Corpuscular Volume 79.6 fL (83.0-100.0); Mean Platelet Volume 10.5 fL (9.4-12.4); Monocytes # 0.8 K/mcL (0.0-1.3); Monocytes % 9.7 %; Neutrophils # 5.2 K/mcL (1.6-8.9); Platelet Count 301 K/mcL (140-400); Red Blood Count 4.32 M/mcL (4.19-5.50); Red Cell Distribution Width 16.7 % (11.5-14.5); Segmented Neutrophils % 63.1 %; White Blood Count 8.2 K/mcL (4.3-11.1)
[2021-02-18] MEDS: *HR* Heparin 5,000 UNIT/ML VIAL SQ SCH ×3 (06:00→20:32)
[2021-02-18 06:09] LABS: Calcium 8.4 mg/dL (8.6-10.3); Potassium 4.3 mEq/L (3.5-5.1)
[2021-02-18] MEDS: Baclofen 10 MG TABLET PO SCH ×3 (07:44→20:31)
[2021-02-18] MEDS: Pregabalin 50 MG CAPSULE PO SCH ×3 (07:44→20:32)
[2021-02-18] MEDS: *HR* Insulin Regular U-500 500 UNIT/ML SUBQ SCH ×3 (07:47→17:04)
[2021-02-18] MEDS ORDERED: cefTRIAXone 2,000 MG in Water for inj. (sterile) 20 ML IVP SCH (09:00)
[2021-02-18] MEDS: Piperacillin/Tazobactam 3.375 GM in 0.9 % Sodium Chloride Mini Bag 100 ML IVPB SCH ×2 (11:27→20:04)
[2021-02-18] MEDS ORDERED: Piperacillin/Tazobactam 3.375 GM in 0.9 % Sodium Chloride Mini Bag 100 ML IVPB SCH (16:00)
[2021-02-19] MEDS: Nicotine 21 MG PATCH.TD24 TD SCH (00:50)
[2021-02-19] MEDS: Piperacillin/Tazobactam 3.375 GM in 0.9 % Sodium Chloride Mini Bag 100 ML IVPB SCH ×3 (03:36→20:33)
[2021-02-19] MEDS: *HR* Heparin 5,000 UNIT/ML VIAL SQ SCH ×3 (06:19→20:36)
[2021-02-19] MEDS ORDERED: 0.9 % Sodium Chloride 1,000 ML IVC SCH (07:30)
[2021-02-19] MEDS: Baclofen 10 MG TABLET PO SCH ×3 (08:53→20:50)
[2021-02-19] MEDS: Pregabalin 50 MG CAPSULE PO SCH ×3 (08:53→20:36)
[2021-02-19] MEDS: *HR* Insulin Regular U-500 500 UNIT/ML SUBQ SCH ×3 (08:54→17:27)
[2021-02-19 11:38] LABS: ANA IgG by ELISA NONE DETECTED (None Detected)
[2021-02-19 12:02] LABS: Hematocrit 34.7 % (37.5-50.1); Hemoglobin 10.7 g/dL (12.9-16.9); Mean Corpuscular HGB Conc 30.8 g/dL (31.6-35.5); Mean Corpuscular Hemoglobin 24.6 pg (28.0-33.3); Mean Corpuscular Volume 79.8 fL (83.0-100.0); Platelet Count 448 K/mcL (140-400); Red Blood Count 4.35 M/mcL (4.19-5.50); Red Cell Distribution Width 17.4 % (11.5-14.5); White Blood Count 9.4 K/mcL (4.3-11.1)
[2021-02-19 12:08] LABS: Calcium 8.8 mg/dL (8.6-10.3); Potassium 4.7 mEq/L (3.5-5.1)
[2021-02-19 12:45] LABS: Eosinophils # 0.2 K/mcL (0.0-0.6); Lymphocytes # 2.4 K/mcL (0.6-4.6); Monocytes # 0.6 K/mcL (0.0-1.3); Neutrophils # 5.8 K/mcL (1.6-8.9); Platelet Estimate Normal (Normal); Reactive Lymphocytes Present (Not Present); Toxic Granulation Present (Not Present)
[2021-02-20] MEDS: Nicotine 21 MG PATCH.TD24 TD SCH (03:17)
[2021-02-20] MEDS: Piperacillin/Tazobactam 3.375 GM in 0.9 % Sodium Chloride Mini Bag 100 ML IVPB SCH ×3 (03:17→18:02)
[2021-02-20] MEDS: *HR* Heparin 5,000 UNIT/ML VIAL SQ SCH ×3 (06:16→20:15)
[2021-02-20] MEDS: Baclofen 10 MG TABLET PO SCH ×3 (07:33→20:14)
[2021-02-20] MEDS: Pregabalin 50 MG CAPSULE PO SCH ×3 (07:34→20:14)
[2021-02-20] MEDS: *HR* Insulin Regular U-500 500 UNIT/ML SUBQ SCH ×3 (07:51→16:46)
[2021-02-20 13:56] LABS: Basophils % 0.3 %; Eosinophils # 0.4 K/mcL (0.0-0.6); Eosinophils % 3.2 %; Hematocrit 35.3 % (37.5-50.1); Hemoglobin 10.7 g/dL (12.9-16.9); Immature Granulocytes % 8.8 % (0-4); Lymphocytes % 18.1 %; Mean Corpuscular HGB Conc 30.3 g/dL (31.6-35.5); Mean Corpuscular Hemoglobin 24.7 pg (28.0-33.3); Mean Corpuscular Volume 81.3 fL (83.0-100.0); Mean Platelet Volume 9.7 fL (9.4-12.4); Monocytes # 0.8 K/mcL (0.0-1.3); Monocytes % 6.9 %; Platelet Count 548 K/mcL (140-400); Red Blood Count 4.34 M/mcL (4.19-5.50); Red Cell Distribution Width 17.8 % (11.5-14.5); Segmented Neutrophils % 62.7 %; White Blood Count 11.1 K/mcL (4.3-11.1)
[2021-02-20 14:16] LABS: Calcium 8.8 mg/dL (8.6-10.3); Potassium 4.6 mEq/L (3.5-5.1)
[2021-02-21] MEDS: Nicotine 21 MG PATCH.TD24 TD SCH (01:31)
[2021-02-21] MEDS: Piperacillin/Tazobactam 3.375 GM in 0.9 % Sodium Chloride Mini Bag 100 ML IVPB SCH ×3 (02:13→20:34)
[2021-02-21] MEDS: *HR* Heparin 5,000 UNIT/ML VIAL SQ SCH ×3 (06:01→20:35)
[2021-02-21 06:26] LABS: Basophils % 0.2 %; Eosinophils # 0.4 K/mcL (0.0-0.6); Hematocrit 33.8 % (37.5-50.1); Hemoglobin 10.5 g/dL (12.9-16.9); Immature Granulocytes % 9.4 % (0-4); Lymphocytes % 16.4 %; Mean Corpuscular HGB Conc 31.1 g/dL (31.6-35.5); Mean Corpuscular Hemoglobin 25.1 pg (28.0-33.3); Mean Corpuscular Volume 80.7 fL (83.0-100.0); Mean Platelet Volume 9.6 fL (9.4-12.4); Monocytes # 1.2 K/mcL (0.0-1.3); Monocytes % 9.2 %; Neutrophils # 7.7 K/mcL (1.6-8.9); Platelet Count 538 K/mcL (140-400); Red Blood Count 4.19 M/mcL (4.19-5.50); Red Cell Distribution Width 17.8 % (11.5-14.5); Segmented Neutrophils % 61.8 %; White Blood Count 12.5 K/mcL (4.3-11.1)
[2021-02-21 06:32] LABS: Lymphocytes # 2.1 K/mcL (0.6-4.6)
[2021-02-21 06:44] LABS: Potassium 4.9 mEq/L (3.5-5.1)
[2021-02-21 06:47] LABS: Platelet Estimate Increased (Normal)
[2021-02-21 06:48] LABS: Toxic Granulation Present (Not Present)
[2021-02-21] MEDS: Pregabalin 50 MG CAPSULE PO SCH ×3 (07:26→20:35)
[2021-02-21] MEDS: Baclofen 10 MG TABLET PO SCH ×3 (07:26→20:35)
[2021-02-21] MEDS: *HR* Insulin Regular U-500 500 UNIT/ML SUBQ SCH ×3 (07:27→16:25)
[2021-02-22] MEDS: Nicotine 21 MG PATCH.TD24 TD SCH (00:13)
[2021-02-22] MEDS: Piperacillin/Tazobactam 3.375 GM in 0.9 % Sodium Chloride Mini Bag 100 ML IVPB SCH ×3 (03:46→18:02)
[2021-02-22 04:21] LABS: Basophils % 0.2 %; Eosinophils # 0.3 K/mcL (0.0-0.6); Eosinophils % 2.1 %; Hematocrit 35.3 % (37.5-50.1); Hemoglobin 10.7 g/dL (12.9-16.9); Immature Granulocytes % 7.7 % (0-4); Lymphocytes # 2.7 K/mcL (0.6-4.6); Lymphocytes % 16.5 %; Mean Corpuscular HGB Conc 30.3 g/dL (31.6-35.5); Mean Corpuscular Hemoglobin 24.3 pg (28.0-33.3); Mean Platelet Volume 9.1 fL (9.4-12.4); Monocytes # 1.7 K/mcL (0.0-1.3); Monocytes % 10.7 %; Platelet Count 588 K/mcL (140-400); Red Blood Count 4.41 M/mcL (4.19-5.50); Red Cell Distribution Width 17.9 % (11.5-14.5); Segmented Neutrophils % 62.8 %; White Blood Count 16.3 K/mcL (4.3-11.1)
[2021-02-22 04:29] LABS: Neutrophils # 10.2 K/mcL (1.6-8.9)
[2021-02-22 04:41] LABS: BUN/Creatinine Ratio 33 (6-26); Blood Urea Nitrogen 49 mg/dL (6-20); Calcium 9.4 mg/dL (8.6-10.3); Carbon Dioxide 26 mEq/L (23-29); Chloride 108 mEq/L (98-107); Glucose 52 mg/dL (70-105); Osmolality,Calculated 302 (280-300); Potassium 4.9 mEq/L (3.5-5.1); Sodium 141 mEq/L (136-145); eGFR For African Americans > 60 (> 60); eGFR For Non-African Americans 51 (> 60)
[2021-02-22 05:07] LABS: Hypochromasia Present (Not Present); Platelet Estimate Increased (Normal); Toxic Granulation Present (Not Present)
[2021-02-22] MEDS: *HR* Heparin 5,000 UNIT/ML VIAL SQ SCH ×3 (05:41→20:19)
[2021-02-22] MEDS: *HR* Insulin Regular U-500 500 UNIT/ML SUBQ SCH ×3 (07:38→18:02)
[2021-02-22] MEDS: Baclofen 10 MG TABLET PO SCH ×3 (09:15→20:19)
[2021-02-22] MEDS: Pregabalin 50 MG CAPSULE PO SCH ×3 (09:15→20:18)
[2021-02-23] MEDS: Nicotine 21 MG PATCH.TD24 TD SCH (00:23)
[2021-02-23] MEDS: Piperacillin/Tazobactam 3.375 GM in 0.9 % Sodium Chloride Mini Bag 100 ML IVPB SCH (02:52)
[2021-02-23 03:21] LABS: Hemoglobin 10.1 g/dL (12.9-16.9); Mean Corpuscular HGB Conc 30.6 g/dL (31.6-35.5); Mean Corpuscular Hemoglobin 24.8 pg (28.0-33.3); Mean Corpuscular Volume 80.9 fL (83.0-100.0); Mean Platelet Volume 9.1 fL (9.4-12.4); Platelet Count 499 K/mcL (140-400); Red Blood Count 4.08 M/mcL (4.19-5.50); White Blood Count 10.1 K/mcL (4.3-11.1)
[2021-02-23 04:05] LABS: Anisocytosis 1+ (Not Present); Eosinophils # 0.4 K/mcL (0.0-0.6); Lymphocytes # 1.4 K/mcL (0.6-4.6); Neutrophils # 7.9 K/mcL (1.6-8.9)
[2021-02-23] MEDS: *HR* Heparin 5,000 UNIT/ML VIAL SQ SCH (05:21)
[2021-02-23 07:14] VITALS: BP 144/80
[2021-02-23] MEDS: Pregabalin 50 MG CAPSULE PO SCH (08:57)
[2021-02-23] MEDS: *HR* Insulin Regular U-500 500 UNIT/ML SUBQ SCH (08:58)
[2021-02-23] MEDS: Baclofen 10 MG TABLET PO SCH (08:58)
== END 2021-02-23 11:05 | disposition home health service (06) | DRG 871 ==
LOC: EMEROOARM 11:43 → 3ANU 11:43 → 2NNU 20:23 → SUATTDRO 21:23 → 2NNU 21:47 → ICNU 02-15 10:20 → 2NNU 02-17 12:18 → 2ANU 02-22 11:11
PROVIDERS: ADMIT Student in an Organized Health Care Education/Training Program; ATTEND Internal Medicine